=== PATIENT | female | born 1955 | race Caucasian/White ===

== ENCOUNTER 2016-05-07 | Outpatient (CLI) | END 2016-05-07 06:53 | disposition critical access hospital (66) | CPT/HCPCS: A0425; A0429 ==

== ENCOUNTER 2016-05-07 07:26 | Emergency (ER) | payer MEDICAID ==
[2016-05-07] MEDS ORDERED: SODIUM CHLORIDE 0.9% 1,000 ML IV ONE (08:12)
== END 2016-05-07 12:10 | disposition home or self-care (01) ==
DX: E86.0 Dehydration (principal); I10 Essential (primary) hypertension

== ENCOUNTER 2016-05-09 | Outpatient (CLI) | END 2016-05-09 12:26 | disposition EMS.NT ==

== ENCOUNTER 2016-05-15 | Outpatient (CLI) | payer MEDICAID | END 2016-05-15 16:01 | disposition EMS.NT ==

== ENCOUNTER 2016-05-22 | Outpatient (CLI) | payer MEDICAID | END 2016-05-22 14:17 | disposition critical access hospital (66) | CPT/HCPCS: A0425; A0429 ==

== ENCOUNTER 2016-05-22 14:51 | Emergency (ER) | payer MEDICAID ==
[2016-05-22] MEDS ORDERED: LORazepam 0.5 MG TABLET PO STA (15:01)
[2016-05-22] MEDS ORDERED: LORazepam 0.5 MG TABLET ONE (15:04)
[2016-05-22] MEDS ORDERED: CYCLOBENZAPRINE 10 MG TABLET PO STA (17:35)
[2016-05-22] MEDS ORDERED: CYCLOBENZAPRINE 10 MG TABLET PO ONE (17:36)
== END 2016-05-22 17:59 | disposition home or self-care (01) ==
DX: M62.838 Other muscle spasm (principal); S76.012A Strain of muscle, fascia and tendon of left hip, initial encounter; W01.0XXA Fall on same level from slipping, tripping and stumbling without subsequent striking against object, initial encounter; Z91.81 History of falling; I10 Essential (primary) hypertension
CPT/HCPCS: 36415; 80053; 81003; 83690; 85025; 99283; 99284; A9270

== ENCOUNTER 2016-05-31 | Outpatient (CLI) | payer MEDICAID | END 2016-05-31 21:02 | disposition critical access hospital (66) | CPT/HCPCS: A0425; A0429 ==

== ENCOUNTER 2016-05-31 21:35 | Emergency (ER) | payer MEDICAID ==
[2016-05-31] MEDS ORDERED: SODIUM CHLORIDE 0.9% 500 ML IV ONE (21:56)
[2016-05-31] MEDS ORDERED: NITROFURANTOIN MACRO 100 MG CAPSULE PO STA (22:46)
[2016-05-31] MEDS ORDERED: NITROFURANTOIN MACRO 100 MG CAPSULE PO ONE (22:48)
[2016-06-01] MEDS ORDERED: ACETAMINOPHEN 325 MG TABLET PO STA ×2 (02:48→08:35)
[2016-06-01] MEDS ORDERED: ACETAMINOPHEN 500 MG TABLET PO ONE (02:58)
[2016-06-01] MEDS ORDERED: ZINC OXIDE 20% OINT 28.35 GM TUBE TOP STA (03:03)
[2016-06-01] MEDS ORDERED: NITROFURANTOIN MACRO 100 MG CAPSULE PO STA (08:35)
[2016-06-01] MEDS ORDERED: ACETAMINOPHEN 325 MG TABLET PO ONE (08:38)
[2016-06-01] MEDS ORDERED: NITROFURANTOIN MACRO 100 MG CAPSULE PO ONE (08:38)
== END 2016-06-01 12:30 | disposition home or self-care (01) ==
DX: S70.11XA Contusion of right thigh, initial encounter (principal); W18.39XA Other fall on same level, initial encounter; Z91.81 History of falling; Y93.89 Activity, other specified; Y92.009 Unspecified place in unspecified non-institutional (private) residence as the place of occurrence of the external cause; Y99.8 Other external cause status; N39.0 Urinary tract infection, site not specified; E86.9 Volume depletion, unspecified; R53.1 Weakness; I10 Essential (primary) hypertension
CPT/HCPCS: 36415; 80053; 81001; 83690; 85025; 93005; 93010; 99284; A9270

== ENCOUNTER 2016-06-05 | Outpatient (CLI) | payer MEDICAID | END 2016-06-05 07:17 | disposition critical access hospital (66) | CPT/HCPCS: A0425; A0429 ==

== ENCOUNTER 2016-06-05 07:49 | Inpatient (IN) | payer MEDICAID ==
[2016-06-05] MEDS ORDERED: LORazepam 0.5 MG TABLET PO STA (08:41)
[2016-06-05] MEDS ORDERED: SODIUM CHLORIDE 0.9% 1,000 ML IV ONE ×2 (08:41→18:54)
[2016-06-05] MEDS ORDERED: LORazepam 0.5 MG TABLET ONE (09:07)
[2016-06-05] MEDS ORDERED: LORazepam 2 MG/ML SYRINGE IVP STA (09:58)
[2016-06-05] MEDS ORDERED: LORazepam 2 MG/ML SYRINGE ONE (10:00)
[2016-06-05] MEDS ORDERED: GADOBUTROL 7.5 MMOL/7.5 ML VIAL IVP ONE (10:52)
[2016-06-05] MEDS ORDERED: SODIUM CHLORIDE FLUSH 0.9% 10 ML SYRINGE IVP PRN (19:02)
[2016-06-05] MEDS ORDERED: ACETAMINOPHEN 325 MG TABLET PO PRN (19:02)
[2016-06-05] MEDS: BACLOFEN 10 MG TABLET PO PRN (21:57)
[2016-06-05] MEDS: OXYBUTYNIN 5MG TABLET PO SCH (21:57)
[2016-06-05] MEDS: SODIUM CHLORIDE 0.9% 1,000 ML IV SCH (23:50)
[2016-06-06] MEDS: SODIUM CHLORIDE FLUSH 0.9% 10 ML SYRINGE IVP SCH ×4 (02:50→20:41)
[2016-06-06] MEDS: cefTRIAXone 1 GM in SODIUM CHLORIDE 0.9% MINIBAG 100 ML IV SCH (05:39)
[2016-06-06] MEDS: SODIUM CHLORIDE 0.9% 1,000 ML IV SCH ×2 (08:40→11:18)
[2016-06-06] MEDS ORDERED: ZINC OXIDE 20% OINT 28.35 GM TUBE TOP ONE (09:35)
[2016-06-06] MEDS: ENOXAPARIN 40 MG/0.4 ML SYRINGE SUBQ SCH (09:40)
[2016-06-06] MEDS: POLYETHYLENE GLYCOL 3350 17 GM PACKET PO SCH (09:41)
[2016-06-06] MEDS: SACCHAROMYCES BOULARDII 250 MG CAPSULE PO SCH ×2 (09:41→17:14)
[2016-06-06] MEDS: OXYBUTYNIN 5MG TABLET PO SCH ×2 (09:41→20:38)
[2016-06-06] MEDS ORDERED: CYANOCOBALAMIN 1,000 MCG/ML VIAL IM ONE (11:15)
[2016-06-06] MEDS ORDERED: methylPREDNISolone SUCCINATE 1,000 MG in SODIUM CHLORIDE 0.9% 250 ML IV ONE (11:30)
[2016-06-06] MEDS ORDERED: diazePAM INJ 5 MG/ML SYRINGE IVP PRN (13:23)
[2016-06-06] MEDS ORDERED: HYDROmorphone 1 MG/ML SYRINGE IVP PRN (13:39)
[2016-06-06] MEDS: ONDANSETRON 4 MG/2 ML VIAL IVP PRN (14:37)
[2016-06-06] MEDS ORDERED: IOPAMIDOL-300 100 ML VIAL IVP ONE (15:36)
[2016-06-06] MEDS ORDERED: traMADol 50 MG TABLET PO PRN (18:47)
[2016-06-06] MEDS: diazePAM 5 MG TABLET PO SCH (20:38)
[2016-06-06] MEDS: CHOLECALCIFEROL 5,000 UNIT CAPSULE PO SCH (20:38)
[2016-06-06] MEDS: OMEGA-3 ACID ETHYL ESTERS 1 GM CAPSULE PO SCH (20:38)
[2016-06-06] MEDS: GABAPENTIN 300 MG CAPSULE PO SCH (20:38)
[2016-06-06] MEDS: BACLOFEN 10 MG TABLET PO PRN (22:45)
[2016-06-07] MEDS: TEMAZEPAM 15 MG CAPSULE PO PRN ×2 (00:23→23:33)
[2016-06-07] MEDS: SODIUM CHLORIDE 0.9% 1,000 ML IV SCH ×3 (00:59→22:54)
[2016-06-07] MEDS: cefTRIAXone 1 GM in SODIUM CHLORIDE 0.9% MINIBAG 100 ML IV SCH (04:32)
[2016-06-07] MEDS: SODIUM CHLORIDE FLUSH 0.9% 10 ML SYRINGE IVP SCH ×3 (05:57→21:36)
[2016-06-07] MEDS: POLYETHYLENE GLYCOL 3350 17 GM PACKET PO SCH (09:22)
[2016-06-07] MEDS: ENOXAPARIN 40 MG/0.4 ML SYRINGE SUBQ SCH (09:23)
[2016-06-07] MEDS: OXYBUTYNIN 5MG TABLET PO SCH ×2 (09:23→21:34)
[2016-06-07] MEDS: SACCHAROMYCES BOULARDII 250 MG CAPSULE PO SCH ×2 (09:23→17:01)
[2016-06-07] MEDS: OMEGA-3 ACID ETHYL ESTERS 1 GM CAPSULE PO SCH (09:23)
[2016-06-07] MEDS: CHOLECALCIFEROL 5,000 UNIT CAPSULE PO SCH ×2 (09:23→21:35)
[2016-06-07] MEDS ORDERED: methylPREDNISolone SUCCINATE 1,000 MG in SODIUM CHLORIDE 0.9% 250 ML IV SCH (12:00)
[2016-06-07] MEDS ORDERED: CIPROFLOXACIN 400 MG/200 ML 200 ML IV SCH (14:00)
[2016-06-07] MEDS: levoFLOXacin 250 MG TABLET PO SCH (17:00)
[2016-06-07] MEDS: ONDANSETRON 4 MG/2 ML VIAL IVP PRN (17:08)
[2016-06-07] MEDS: diazePAM 5 MG TABLET PO SCH (21:34)
[2016-06-07] MEDS: GABAPENTIN 300 MG CAPSULE PO SCH (21:35)
[2016-06-08] MEDS: ONDANSETRON 4 MG/2 ML VIAL IVP PRN (08:08)
[2016-06-08] MEDS ORDERED: GLUCAGON 1 MG/ML VIAL SUBQ PRN (08:30)
[2016-06-08] MEDS ORDERED: DEXTROSE GEL 37.5 GM TUBE PO PRN (08:30)
[2016-06-08] MEDS ORDERED: DEXTROSE 5% 1,000 ML IV PRN (08:30)
[2016-06-08] MEDS ORDERED: DEXTROSE 50% ABBOJECT 25 GM/50 ML SYRINGE IVP PRN (08:30)
[2016-06-08] MEDS: SODIUM CHLORIDE 0.9% 1,000 ML IV SCH (09:10)
[2016-06-08] MEDS ORDERED: MULTIVITAMIN 10 ML, FOLIC ACID INJ 1 MG, THIAMINE INJ 100 MG, MAGNESIUM SULFATE 2 GM in... IV SCH ×5 (09:30)
[2016-06-08] MEDS: OXYBUTYNIN 5MG TABLET PO SCH ×2 (09:37→21:19)
[2016-06-08] MEDS: levoFLOXacin 250 MG TABLET PO SCH (09:37)
[2016-06-08] MEDS: CHOLECALCIFEROL 5,000 UNIT CAPSULE PO SCH ×3 (09:37→21:20)
[2016-06-08] MEDS: POLYETHYLENE GLYCOL 3350 17 GM PACKET PO SCH (09:37)
[2016-06-08] MEDS: SACCHAROMYCES BOULARDII 250 MG CAPSULE PO SCH ×2 (09:38→16:37)
[2016-06-08] MEDS: ENOXAPARIN 40 MG/0.4 ML SYRINGE SUBQ SCH (09:38)
[2016-06-08] MEDS: OMEGA-3 ACID ETHYL ESTERS 1 GM CAPSULE PO SCH (09:38)
[2016-06-08] MEDS: SODIUM CHLORIDE FLUSH 0.9% 10 ML SYRINGE IVP SCH ×3 (10:42→23:59)
[2016-06-08] MEDS ORDERED: ALPRAZolam 0.25 MG TABLET PO ONE (11:10)
[2016-06-08] MEDS: INSULIN ASPART 300 UNIT/3 ML PEN SUBQ SCH ×3 (13:04→21:22)
[2016-06-08] MEDS ORDERED: ONDANSETRON ODT 4 MG TABLET TL PRN (14:43)
[2016-06-08] MEDS ORDERED: methylPREDNISolone SUCCINATE 1,000 MG in SODIUM CHLORIDE 0.9% 250 ML IV ONE (16:00)
[2016-06-08] MEDS: GABAPENTIN 300 MG CAPSULE PO SCH (21:19)
[2016-06-08] MEDS: diazePAM 5 MG TABLET PO SCH (21:19)
[2016-06-09] MEDS: TEMAZEPAM 15 MG CAPSULE PO PRN ×2 (01:01→23:59)
[2016-06-09] MEDS: SODIUM CHLORIDE FLUSH 0.9% 10 ML SYRINGE IVP SCH ×3 (05:25→21:00)
[2016-06-09] MEDS: ENOXAPARIN 40 MG/0.4 ML SYRINGE SUBQ SCH (07:56)
[2016-06-09] MEDS: INSULIN ASPART 300 UNIT/3 ML PEN SUBQ SCH ×4 (08:01→20:58)
[2016-06-09] MEDS: POLYETHYLENE GLYCOL 3350 17 GM PACKET PO SCH (08:02)
[2016-06-09] MEDS: OXYBUTYNIN 5MG TABLET PO SCH ×2 (08:02→20:51)
[2016-06-09] MEDS: OMEGA-3 ACID ETHYL ESTERS 1 GM CAPSULE PO SCH (08:02)
[2016-06-09] MEDS: SACCHAROMYCES BOULARDII 250 MG CAPSULE PO SCH ×2 (08:02→17:05)
[2016-06-09] MEDS: levoFLOXacin 250 MG TABLET PO SCH (08:02)
[2016-06-09] MEDS ORDERED: THIAMINE 100 MG/1 ML 2 ML MDV IM SCH (09:00)
[2016-06-09] MEDS ORDERED: diazePAM INJ 5 MG/ML SYRINGE IVP PRN (10:09)
[2016-06-09] MEDS ORDERED: LORazepam 2 MG/ML SYRINGE IVP PRN (10:10)
[2016-06-09] MEDS ORDERED: HYDROmorphone 1 MG/ML SYRINGE IVP PRN (10:11)
[2016-06-09] MEDS ORDERED: GABAPENTIN 100 MG CAPSULE PO PRN (11:00)
[2016-06-09] MEDS ORDERED: methylPREDNISolone SUCCINATE 500 MG in SODIUM CHLORIDE 0.9% 100ML 100 ML IV ONE (12:00)
[2016-06-09] MEDS ORDERED: GADOBUTROL 7.5 MMOL/7.5 ML VIAL IVP ONE (12:53)
[2016-06-09] MEDS: GABAPENTIN 300 MG CAPSULE PO SCH (20:51)
[2016-06-09] MEDS: CHOLECALCIFEROL 5,000 UNIT CAPSULE PO SCH (20:51)
[2016-06-09] MEDS: diazePAM 5 MG TABLET PO SCH (20:51)
[2016-06-10] MEDS: SODIUM CHLORIDE FLUSH 0.9% 10 ML SYRINGE IVP SCH ×3 (07:05→20:36)
[2016-06-10] MEDS: CHOLECALCIFEROL 5,000 UNIT CAPSULE PO SCH ×2 (08:27→20:36)
[2016-06-10] MEDS: OMEGA-3 ACID ETHYL ESTERS 1 GM CAPSULE PO SCH (08:27)
[2016-06-10] MEDS: ENOXAPARIN 40 MG/0.4 ML SYRINGE SUBQ SCH (08:27)
[2016-06-10] MEDS: SACCHAROMYCES BOULARDII 250 MG CAPSULE PO SCH ×2 (08:28→17:45)
[2016-06-10] MEDS: POLYETHYLENE GLYCOL 3350 17 GM PACKET PO SCH (08:28)
[2016-06-10] MEDS: OXYBUTYNIN 5MG TABLET PO SCH ×2 (08:28→20:36)
[2016-06-10] MEDS: INSULIN ASPART 300 UNIT/3 ML PEN SUBQ SCH ×4 (08:28→20:36)
[2016-06-10] MEDS: THIAMINE 100 MG/1 ML 2 ML MDV IM SCH (08:28)
[2016-06-10] MEDS ORDERED: GABAPENTIN 100 MG CAPSULE PO PRN (10:34)
[2016-06-10] MEDS ORDERED: diazePAM INJ 5 MG/ML SYRINGE IVP PRN (10:36)
[2016-06-10] MEDS ORDERED: LORazepam 2 MG/ML SYRINGE IVP PRN (10:37)
[2016-06-10] MEDS ORDERED: ZINC OXIDE 20% OINT 28.35 GM TUBE TOP ONE (15:06)
[2016-06-10] MEDS ORDERED: methylPREDNISolone SUCCINATE 125 MG/2 ML VIAL IVP SCH (18:00)
[2016-06-10] MEDS ORDERED: SODIUM CHLORIDE 0.9% IV ONE (18:30)
[2016-06-10] MEDS ORDERED: METHYLPREDNISOLONE SUCCINATE IV ONE (18:30)
[2016-06-10] MEDS: GABAPENTIN 300 MG CAPSULE PO SCH (20:36)
[2016-06-10] MEDS: diazePAM 5 MG TABLET PO SCH (20:36)
[2016-06-10] MEDS ORDERED: BENZOCAINE/MENTHOL LOZENGE MM PRN (22:13)
[2016-06-11] MEDS: TEMAZEPAM 15 MG CAPSULE PO PRN (00:04)
[2016-06-11] MEDS: SODIUM CHLORIDE FLUSH 0.9% 10 ML SYRINGE IVP SCH ×3 (06:49→20:54)
[2016-06-11] MEDS: SACCHAROMYCES BOULARDII 250 MG CAPSULE PO SCH ×2 (08:21→16:28)
[2016-06-11] MEDS: OXYBUTYNIN 5MG TABLET PO SCH ×2 (08:21→20:54)
[2016-06-11] MEDS: OMEGA-3 ACID ETHYL ESTERS 1 GM CAPSULE PO SCH (08:21)
[2016-06-11] MEDS: POLYETHYLENE GLYCOL 3350 17 GM PACKET PO SCH (08:21)
[2016-06-11] MEDS: ENOXAPARIN 40 MG/0.4 ML SYRINGE SUBQ SCH (08:21)
[2016-06-11] MEDS: CHOLECALCIFEROL 5,000 UNIT CAPSULE PO SCH ×2 (08:21→20:54)
[2016-06-11] MEDS: THIAMINE 100 MG/1 ML 2 ML MDV IM SCH (08:22)
[2016-06-11] MEDS: INSULIN ASPART 300 UNIT/3 ML PEN SUBQ SCH ×4 (08:22→20:53)
[2016-06-11] MEDS ORDERED: methylPREDNISolone SUCCINATE 500 MG in SODIUM CHLORIDE 0.9% 100ML 100 ML IV ONE ×2 (09:25→11:00)
[2016-06-11] MEDS: GABAPENTIN 300 MG CAPSULE PO SCH (20:54)
[2016-06-11] MEDS: diazePAM 5 MG TABLET PO SCH (23:48)
[2016-06-12] MEDS: INSULIN ASPART 300 UNIT/3 ML PEN SUBQ SCH ×4 (08:06→22:04)
[2016-06-12] MEDS: THIAMINE 100 MG TABLET PO SCH (09:06)
[2016-06-12] MEDS: SACCHAROMYCES BOULARDII 250 MG CAPSULE PO SCH ×2 (09:06→17:07)
[2016-06-12] MEDS: OMEGA-3 ACID ETHYL ESTERS 1 GM CAPSULE PO SCH (09:06)
[2016-06-12] MEDS: OXYBUTYNIN 5MG TABLET PO SCH ×2 (09:06→21:58)
[2016-06-12] MEDS: CHOLECALCIFEROL 5,000 UNIT CAPSULE PO SCH ×2 (09:06→21:58)
[2016-06-12] MEDS: POLYETHYLENE GLYCOL 3350 17 GM PACKET PO SCH (09:07)
[2016-06-12] MEDS: ENOXAPARIN 40 MG/0.4 ML SYRINGE SUBQ SCH (09:08)
[2016-06-12] MEDS: SODIUM CHLORIDE FLUSH 0.9% 10 ML SYRINGE IVP SCH ×3 (09:12→21:58)
[2016-06-12] MEDS ORDERED: ZINC OXIDE 20% OINT 28.35 GM TUBE TOP ONE (15:07)
[2016-06-12] MEDS: predniSONE 20 MG TABLET PO SCH ×2 (15:32→21:58)
[2016-06-12] MEDS: GABAPENTIN 300 MG CAPSULE PO SCH (21:58)
[2016-06-12] MEDS: diazePAM 5 MG TABLET PO SCH (23:39)
[2016-06-13] MEDS: TEMAZEPAM 15 MG CAPSULE PO PRN (01:23)
[2016-06-13] MEDS: SODIUM CHLORIDE FLUSH 0.9% 10 ML SYRINGE IVP SCH (06:34)
[2016-06-13] MEDS: INSULIN ASPART 300 UNIT/3 ML PEN SUBQ SCH ×2 (07:40→12:43)
[2016-06-13] MEDS: SACCHAROMYCES BOULARDII 250 MG CAPSULE PO SCH (08:25)
[2016-06-13] MEDS: CHOLECALCIFEROL 5,000 UNIT CAPSULE PO SCH (08:25)
[2016-06-13] MEDS: OMEGA-3 ACID ETHYL ESTERS 1 GM CAPSULE PO SCH (08:25)
[2016-06-13] MEDS: ENOXAPARIN 40 MG/0.4 ML SYRINGE SUBQ SCH (08:26)
[2016-06-13] MEDS: POLYETHYLENE GLYCOL 3350 17 GM PACKET PO SCH (08:26)
[2016-06-13] MEDS: OXYBUTYNIN 5MG TABLET PO SCH (08:26)
[2016-06-13] MEDS: THIAMINE 100 MG TABLET PO SCH (08:26)
[2016-06-13] MEDS: predniSONE 20 MG TABLET PO SCH (08:26)
== END 2016-06-13 14:25 | DRG 546 ==
DX: M32.9 Systemic lupus erythematosus, unspecified (principal); N30.01 Acute cystitis with hematuria; E87.1 Hypo-osmolality and hyponatremia; R27.0 Ataxia, unspecified; R76.0 Raised antibody titer; B95.61 Methicillin susceptible Staphylococcus aureus infection as the cause of diseases classified elsewhere; G35 Multiple sclerosis; Z16.11 Resistance to penicillins; Z85.3 Personal history of malignant neoplasm of breast; Z79.52 Long term (current) use of systemic steroids; Z88.5 Allergy status to narcotic agent; R31.29 Other microscopic hematuria; R90.89 Other abnormal findings on diagnostic imaging of central nervous system; I95.9 Hypotension, unspecified; R29.6 Repeated falls; Z90.13 Acquired absence of bilateral breasts and nipples; R25.9 Unspecified abnormal involuntary movements; Z82.49 Family history of ischemic heart disease and other diseases of the circulatory system; Z82.3 Family history of stroke; Z83.79 Family history of other diseases of the digestive system; I10 Essential (primary) hypertension; E86.0 Dehydration; S30.0XXA Contusion of lower back and pelvis, initial encounter; W19.XXXA Unspecified fall, initial encounter; R60.0 Localized edema; R73.9 Hyperglycemia, unspecified; T38.0X5A Adverse effect of glucocorticoids and synthetic analogues, initial encounter

== ENCOUNTER 2016-07-17 11:47 | Outpatient (CLI) | payer MEDICAID | END 2016-07-17 11:48 | disposition home or self-care (01) | DX: R94.4 Abnormal results of kidney function studies (principal); E83.51 Hypocalcemia ==

== ENCOUNTER 2016-08-14 18:30 | Outpatient (CLI) | payer MEDICAID | END 2016-08-14 18:31 | disposition EMS.NT | DX: T17.928A Food in respiratory tract, part unspecified causing other injury, initial encounter (principal) ==

== ENCOUNTER 2016-08-16 06:05 | Outpatient (CLI) | payer MEDICAID | END 2016-08-16 06:06 | disposition critical access hospital (66) | DX: R55 Syncope and collapse (principal) | CPT/HCPCS: A0425; A0429 ==

== ENCOUNTER 2016-08-16 06:33 | Inpatient (IN) | payer MEDICAID ==
[2016-08-16] MEDS ORDERED: SODIUM CHLORIDE 0.9% 1,000 ML IV ONE (06:45)
[2016-08-16] MEDS ORDERED: DEXTROSE 50% ABBOJECT 25 GM/50 ML SYRINGE ONE (07:29)
[2016-08-16] MEDS ORDERED: DEXTROSE 50% ABBOJECT 25 GM/50 ML SYRINGE IVP STA (07:30)
[2016-08-16] MEDS ORDERED: IOPAMIDOL-300 100 ML VIAL IVP ONE (07:39)
[2016-08-16] MEDS ORDERED: HYDROCORTISONE SUCCINATE 100 MG/2 ML VIAL IVP STA (07:49)
[2016-08-16] MEDS ORDERED: HYDROCORTISONE SUCCINATE 100 MG/2 ML VIAL IVP ONE (07:52)
[2016-08-16] MEDS ORDERED: WATER FOR INJECTION,STERILE 10 ML ONE (07:54)
[2016-08-16] MEDS ORDERED: PIPERACILLIN/TAZOBACTAM 4.5 GM in SODIUM CHLORIDE 0.9% MINIBAG 100 ML IV STA (08:18)
[2016-08-16] MEDS ORDERED: ENOXAPARIN 100 MG/ML SYRINGE SUBQ STA (08:23)
[2016-08-16] MEDS ORDERED: ENOXAPARIN 100 MG/ML SYRINGE SUBQ ONE (08:43)
[2016-08-16] MEDS ORDERED: ALBUTEROL NEB 2.5 MG/3 ML INH PRN (09:35)
[2016-08-16] MEDS ORDERED: IPRATROPIUM/ALBUTEROL 3 ML NEB INH PRN (09:35)
[2016-08-16] MEDS: SODIUM CHLORIDE 0.9% 1,000 ML IV SCH ×2 (10:40→23:00)
[2016-08-16] MEDS: methylPREDNISolone SUCCINATE 40 MG/ML VIAL IVP SCH ×2 (11:09→21:11)
[2016-08-16] MEDS: ENOXAPARIN 60 MG/0.6 ML SYRINGE SUBQ SCH ×2 (11:11→21:55)
[2016-08-16] MEDS: ONDANSETRON 4 MG/2 ML VIAL IVP PRN (11:12)
[2016-08-16] MEDS: OXYBUTYNIN 5MG TABLET PO SCH ×2 (11:12→21:57)
[2016-08-16] MEDS: POTASSIUM CHLORIDE 20 MEQ TABLET PO SCH ×2 (11:14→14:11)
[2016-08-16] MEDS: PIPERACILLIN/TAZOBACTAM 4.5 GM in SODIUM CHLORIDE 0.9% MINIBAG 100 ML IV SCH ×2 (11:15→20:47)
[2016-08-16] MEDS ORDERED: WARFARIN 5 MG TABLET PO ONE (11:30)
[2016-08-16] MEDS: SODIUM CHLORIDE FLUSH 0.9% 10 ML SYRINGE IVP SCH (14:11)
[2016-08-16] MEDS: HYDROcod/ACETAM 5/325 MG TABLET PO PRN ×2 (14:17→21:07)
[2016-08-16] MEDS: MIN OIL/DIMETHICON/COCONUT OIL 92 GM TUBE TOP PRN (17:57)
[2016-08-16] MEDS: BACLOFEN 10 MG TABLET PO SCH ×2 (17:57→21:56)
[2016-08-16] MEDS: SACCHAROMYCES BOULARDII 250 MG CAPSULE PO SCH (17:57)
[2016-08-16] MEDS: traMADol 50 MG TABLET PO PRN (19:40)
[2016-08-16] MEDS: GABAPENTIN 300 MG CAPSULE PO SCH (21:08)
[2016-08-16] MEDS: TEMAZEPAM 15 MG CAPSULE PO SCH (21:36)
[2016-08-16] MEDS: LORazepam 0.5 MG TABLET PO PRN (22:57)
[2016-08-17] MEDS: SODIUM CHLORIDE FLUSH 0.9% 10 ML SYRINGE IVP SCH ×4 (01:01→20:51)
[2016-08-17] MEDS: PIPERACILLIN/TAZOBACTAM 4.5 GM in SODIUM CHLORIDE 0.9% MINIBAG 100 ML IV SCH ×3 (04:08→20:49)
[2016-08-17] MEDS: BACLOFEN 10 MG TABLET PO SCH ×3 (05:42→20:50)
[2016-08-17] MEDS: HYDROcod/ACETAM 5/325 MG TABLET PO PRN ×2 (05:43→06:41)
[2016-08-17] MEDS: SACCHAROMYCES BOULARDII 250 MG CAPSULE PO SCH ×2 (08:06→16:02)
[2016-08-17] MEDS: methylPREDNISolone SUCCINATE 40 MG/ML VIAL IVP SCH ×2 (08:06→20:50)
[2016-08-17] MEDS: ENOXAPARIN 60 MG/0.6 ML SYRINGE SUBQ SCH ×2 (08:06→20:49)
[2016-08-17] MEDS: OXYBUTYNIN 5MG TABLET PO SCH ×2 (08:06→20:50)
[2016-08-17] MEDS: MIN OIL/DIMETHICON/COCONUT OIL 92 GM TUBE TOP PRN (08:07)
[2016-08-17] MEDS ORDERED: GABAPENTIN 300 MG CAPSULE PO SCH (09:00)
[2016-08-17] MEDS: ONDANSETRON 4 MG/2 ML VIAL IVP PRN (13:17)
[2016-08-17] MEDS: WARFARIN 5 MG TABLET PO SCH (13:19)
[2016-08-17] MEDS: GABAPENTIN 300 MG CAPSULE PO SCH (20:50)
[2016-08-17] MEDS: TEMAZEPAM 15 MG CAPSULE PO SCH (22:22)
[2016-08-17] MEDS: ACETAMINOPHEN 325 MG TABLET PO PRN (23:33)
[2016-08-18] MEDS: PIPERACILLIN/TAZOBACTAM 4.5 GM in SODIUM CHLORIDE 0.9% MINIBAG 100 ML IV SCH ×3 (03:40→20:15)
[2016-08-18] MEDS: SODIUM CHLORIDE FLUSH 0.9% 10 ML SYRINGE IVP PRN ×2 (03:41→17:51)
[2016-08-18] MEDS: SODIUM CHLORIDE FLUSH 0.9% 10 ML SYRINGE IVP SCH ×3 (05:04→20:16)
[2016-08-18] MEDS: BACLOFEN 10 MG TABLET PO SCH ×3 (05:58→21:40)
[2016-08-18] MEDS: SACCHAROMYCES BOULARDII 250 MG CAPSULE PO SCH ×2 (09:14→17:48)
[2016-08-18] MEDS: OXYBUTYNIN 5MG TABLET PO SCH ×2 (09:14→20:22)
[2016-08-18] MEDS: ENOXAPARIN 60 MG/0.6 ML SYRINGE SUBQ SCH ×2 (09:14→21:40)
[2016-08-18] MEDS: methylPREDNISolone SUCCINATE 40 MG/ML VIAL IVP SCH ×2 (09:14→20:20)
[2016-08-18] MEDS: WARFARIN 5 MG TABLET PO SCH (16:12)
[2016-08-18] MEDS: TEMAZEPAM 15 MG CAPSULE PO SCH (20:22)
[2016-08-18] MEDS: GABAPENTIN 300 MG CAPSULE PO SCH (20:23)
[2016-08-18] MEDS: LORazepam 0.5 MG TABLET PO PRN (21:45)
[2016-08-19] MEDS: PIPERACILLIN/TAZOBACTAM 4.5 GM in SODIUM CHLORIDE 0.9% MINIBAG 100 ML IV SCH ×3 (04:42→20:35)
[2016-08-19] MEDS: SACCHAROMYCES BOULARDII 250 MG CAPSULE PO SCH ×2 (07:05→16:29)
[2016-08-19] MEDS: BACLOFEN 10 MG TABLET PO SCH ×3 (07:05→21:02)
[2016-08-19] MEDS: SODIUM CHLORIDE FLUSH 0.9% 10 ML SYRINGE IVP SCH ×3 (07:05→20:36)
[2016-08-19] MEDS: OXYBUTYNIN 5MG TABLET PO SCH ×2 (08:55→20:44)
[2016-08-19] MEDS: ENOXAPARIN 60 MG/0.6 ML SYRINGE SUBQ SCH ×2 (08:55→20:58)
[2016-08-19] MEDS: methylPREDNISolone SUCCINATE 40 MG/ML VIAL IVP SCH ×2 (08:56→20:45)
[2016-08-19] MEDS: WARFARIN 5 MG TABLET PO SCH (14:02)
[2016-08-19] MEDS ORDERED: BISACODYL 10 MG SUPP PR ONE (18:07)
[2016-08-19] MEDS: GABAPENTIN 300 MG CAPSULE PO SCH (20:44)
[2016-08-19] MEDS: ACETAMINOPHEN 325 MG TABLET PO PRN (21:01)
[2016-08-19] MEDS: TEMAZEPAM 15 MG CAPSULE PO SCH (21:02)
[2016-08-20] MEDS: SODIUM CHLORIDE FLUSH 0.9% 10 ML SYRINGE IVP PRN (00:43)
[2016-08-20] MEDS: PIPERACILLIN/TAZOBACTAM 4.5 GM in SODIUM CHLORIDE 0.9% MINIBAG 100 ML IV SCH ×3 (03:47→21:08)
[2016-08-20] MEDS: BACLOFEN 10 MG TABLET PO SCH ×3 (06:11→21:09)
[2016-08-20] MEDS: SODIUM CHLORIDE FLUSH 0.9% 10 ML SYRINGE IVP SCH ×3 (06:12→21:08)
[2016-08-20] MEDS ORDERED: diazePAM 5 MG TABLET PO PRN (07:58)
[2016-08-20] MEDS: ENOXAPARIN 60 MG/0.6 ML SYRINGE SUBQ SCH (09:28)
[2016-08-20] MEDS: OXYBUTYNIN 5MG TABLET PO SCH ×2 (09:28→21:09)
[2016-08-20] MEDS: methylPREDNISolone SUCCINATE 40 MG/ML VIAL IVP SCH (09:28)
[2016-08-20] MEDS: SACCHAROMYCES BOULARDII 250 MG CAPSULE PO SCH ×4 (09:28→18:41)
[2016-08-20] MEDS: WARFARIN 5 MG TABLET PO SCH (14:04)
[2016-08-20] MEDS: GABAPENTIN 300 MG CAPSULE PO SCH (21:09)
[2016-08-20] MEDS: TEMAZEPAM 15 MG CAPSULE PO SCH (22:27)
[2016-08-21] MEDS: traMADol 50 MG TABLET PO PRN (01:38)
[2016-08-21] MEDS: PIPERACILLIN/TAZOBACTAM 4.5 GM in SODIUM CHLORIDE 0.9% MINIBAG 100 ML IV SCH ×3 (04:11→20:38)
[2016-08-21] MEDS: SODIUM CHLORIDE FLUSH 0.9% 10 ML SYRINGE IVP SCH ×3 (04:11→20:38)
[2016-08-21] MEDS: BACLOFEN 10 MG TABLET PO SCH ×3 (07:27→22:24)
[2016-08-21] MEDS: predniSONE 20 MG TABLET PO SCH (08:20)
[2016-08-21] MEDS: OXYBUTYNIN 5MG TABLET PO SCH ×2 (08:20→22:24)
[2016-08-21] MEDS: SACCHAROMYCES BOULARDII 250 MG CAPSULE PO SCH ×2 (08:21→16:29)
[2016-08-21] MEDS: WARFARIN 5 MG TABLET PO SCH (13:26)
[2016-08-21] MEDS: MICONAZOLE CREAM (EXTRA-THICK) 92 GM TUBE TOP SCH ×2 (13:37→22:25)
[2016-08-21] MEDS: TEMAZEPAM 15 MG CAPSULE PO SCH (22:24)
[2016-08-21] MEDS: GABAPENTIN 300 MG CAPSULE PO SCH (22:24)
[2016-08-22] MEDS: SODIUM CHLORIDE FLUSH 0.9% 10 ML SYRINGE IVP PRN ×2 (00:41→04:35)
[2016-08-22] MEDS: PIPERACILLIN/TAZOBACTAM 4.5 GM in SODIUM CHLORIDE 0.9% MINIBAG 100 ML IV SCH ×2 (04:34→11:53)
[2016-08-22] MEDS: BACLOFEN 10 MG TABLET PO SCH ×2 (06:40→13:14)
[2016-08-22] MEDS: LORazepam 0.5 MG TABLET PO PRN (07:07)
[2016-08-22] MEDS: OXYBUTYNIN 5MG TABLET PO SCH ×2 (08:23→21:05)
[2016-08-22] MEDS: traMADol 50 MG TABLET PO PRN (08:23)
[2016-08-22] MEDS: predniSONE 20 MG TABLET PO SCH (08:23)
[2016-08-22] MEDS: SACCHAROMYCES BOULARDII 250 MG CAPSULE PO SCH ×2 (08:23→21:05)
[2016-08-22] MEDS: MICONAZOLE CREAM (EXTRA-THICK) 92 GM TUBE TOP SCH ×2 (08:28→21:06)
[2016-08-22] MEDS: SODIUM CHLORIDE FLUSH 0.9% 10 ML SYRINGE IVP SCH ×3 (08:44→21:06)
[2016-08-22] MEDS: WARFARIN 5 MG TABLET PO SCH (13:14)
[2016-08-23] MEDS: LORazepam 0.5 MG TABLET PO PRN (01:08)
[2016-08-23] MEDS: SODIUM CHLORIDE FLUSH 0.9% 10 ML SYRINGE IVP SCH (05:41)
[2016-08-23] MEDS: SACCHAROMYCES BOULARDII 250 MG CAPSULE PO SCH (08:35)
[2016-08-23] MEDS: OXYBUTYNIN 5MG TABLET PO SCH (08:35)
[2016-08-23] MEDS: predniSONE 20 MG TABLET PO SCH (08:36)
[2016-08-23] MEDS: MICONAZOLE CREAM (EXTRA-THICK) 92 GM TUBE TOP SCH (08:36)
[2016-08-23] MEDS ORDERED: LORazepam 2 MG/ML SYRINGE IVP STA (15:24)
[2016-08-23] MEDS ORDERED: LORazepam 0.5 MG TABLET PO STA (16:26)
== END 2016-08-23 09:00 | DRG 175 ==
DX: I26.99 Other pulmonary embolism without acute cor pulmonale (principal); J18.9 Pneumonia, unspecified organism; G37.9 Demyelinating disease of central nervous system, unspecified; E27.40 Unspecified adrenocortical insufficiency; E24.2 Drug-induced Cushing's syndrome; E87.6 Hypokalemia; J01.90 Acute sinusitis, unspecified; R55 Syncope and collapse; R53.1 Weakness; D64.9 Anemia, unspecified; R41.0 Disorientation, unspecified; K76.0 Fatty (change of) liver, not elsewhere classified; I10 Essential (primary) hypertension; G62.9 Polyneuropathy, unspecified; F40.240 Claustrophobia; R59.0 Localized enlarged lymph nodes; E27.9 Disorder of adrenal gland, unspecified; Z85.3 Personal history of malignant neoplasm of breast; Z90.13 Acquired absence of bilateral breasts and nipples; Z79.899 Other long term (current) drug therapy; F09 Unspecified mental disorder due to known physiological condition; R40.4 Transient alteration of awareness; J01.00 Acute maxillary sinusitis, unspecified; J01.30 Acute sphenoidal sinusitis, unspecified; T38.0X5A Adverse effect of glucocorticoids and synthetic analogues, initial encounter; L89.309 Pressure ulcer of unspecified buttock, unspecified stage; Z79.01 Long term (current) use of anticoagulants; Z79.52 Long term (current) use of systemic steroids

== ENCOUNTER 2016-08-23 14:27 | Inpatient (IN) | payer MEDICAID ==
[~2016-08-23 14:27] MED LIST: ONDANSETRON 4 MG/2 ML VIAL IVP PRN; OXYBUTYNIN 5MG TABLET PO PRN; SODIUM CHLORIDE FLUSH 0.9% 10 ML SYRINGE IVP PRN
[2016-08-23] MEDS ORDERED: LORazepam 2 MG/ML SYRINGE IVP ONE (16:00)
[2016-08-23] MEDS ORDERED: LORazepam 0.5 MG TABLET PO ONE (16:45)
[2016-08-23] MEDS: WARFARIN 5 MG TABLET PO SCH (18:33)
[2016-08-23] MEDS: SODIUM CHLORIDE 0.9% 1,000 ML IV SCH (18:34)
[2016-08-23] MEDS: SODIUM CHLORIDE FLUSH 0.9% 10 ML SYRINGE IVP SCH (20:39)
[2016-08-23] MEDS: GABAPENTIN 300 MG CAPSULE PO SCH (20:39)
[2016-08-23] MEDS ORDERED: ATORVASTATIN 40 MG TABLET PO SCH (21:00)
[2016-08-23] MEDS: NYSTATIN POWDER 15 GM TOP SCH (21:41)
[2016-08-24] MEDS: SODIUM CHLORIDE 0.9% 1,000 ML IV SCH (03:59)
[2016-08-24] MEDS: SODIUM CHLORIDE FLUSH 0.9% 10 ML SYRINGE IVP SCH ×3 (04:03→20:51)
[2016-08-24] MEDS ORDERED: PANTOPRAZOLE 40 MG TABLET PO SCH (07:00)
[2016-08-24] MEDS: WARFARIN 5 MG TABLET PO SCH (07:08)
[2016-08-24] MEDS ORDERED: predniSONE 10 MG TABLET PO SCH (08:00)
[2016-08-24] MEDS ORDERED: MULTIVITAMIN TABLET PO SCH (08:00)
[2016-08-24] MEDS: ATENOLOL 25 MG TABLET PO SCH (11:10)
[2016-08-24] MEDS: POLYETHYLENE GLYCOL 3350 17 GM PACKET PO SCH (11:10)
[2016-08-24] MEDS: ASPIRIN EC 81 MG TABLET PO SCH (11:10)
[2016-08-24] MEDS: NYSTATIN POWDER 15 GM TOP SCH ×2 (11:10→20:50)
[2016-08-24] MEDS ORDERED: CHOLECALCIFEROL 5,000 UNIT CAPSULE PO SCH ×2 (12:00→18:05)
[2016-08-24] MEDS: ASCORBIC ACID CHEW 500 MG TABLET PO SCH (12:20)
[2016-08-24] MEDS: OMEGA-3 ACID ETHYL ESTERS 1 GM CAPSULE PO SCH (12:20)
[2016-08-24] MEDS ORDERED: [UNRECOGNIZED DRUG - OTHER] IV SCH ×6 (12:30)
[2016-08-24] MEDS ORDERED: THIAMINE IV SCH ×6 (12:30)
[2016-08-24] MEDS ORDERED: FOLIC ACID IV SCH ×6 (12:30)
[2016-08-24] MEDS ORDERED: MULTIVITAMIN IV SCH ×6 (12:30)
[2016-08-24] MEDS ORDERED: MAGNESIUM SULFATE IV SCH ×6 (12:30)
[2016-08-24] MEDS ORDERED: IRON SUCROSE 200 MG in SODIUM CHLORIDE 0.9% 100ML 100 ML IV SCH (17:40)
[2016-08-24] MEDS ORDERED: CYANOCOBALAMIN 1,000 MCG/ML VIAL IM SCH (18:34)
[2016-08-24] MEDS: oxyCODONE 5 MG TABLET PO PRN (18:53)
[2016-08-24] MEDS: ALPRAZolam 0.25 MG TABLET PO PRN (18:53)
[2016-08-24] MEDS: SACCHAROMYCES BOULARDII 250 MG CAPSULE PO SCH (18:55)
[2016-08-24] MEDS: GABAPENTIN 300 MG CAPSULE PO SCH (20:49)
[2016-08-25] MEDS: ACETAMINOPHEN 325 MG TABLET PO PRN ×2 (00:17→10:31)
[2016-08-25] MEDS: NYSTATIN 500000 UNITS/5 ML UDC PO SCH ×5 (00:17→21:29)
[2016-08-25] MEDS: SODIUM CHLORIDE 0.9% 1,000 ML IV SCH ×4 (03:12→21:29)
[2016-08-25] MEDS: ALPRAZolam 0.25 MG TABLET PO PRN ×2 (03:33→19:27)
[2016-08-25] MEDS: oxyCODONE 5 MG TABLET PO PRN (03:33)
[2016-08-25] MEDS: SODIUM CHLORIDE FLUSH 0.9% 10 ML SYRINGE IVP SCH ×3 (05:26→21:29)
[2016-08-25] MEDS ORDERED: MULTIVITAMIN IV SCH ×7 (10:00)
[2016-08-25] MEDS ORDERED: THIAMINE IV SCH ×7 (10:00)
[2016-08-25] MEDS ORDERED: MAGNESIUM SULFATE IV SCH ×7 (10:00)
[2016-08-25] MEDS ORDERED: [UNRECOGNIZED DRUG - OTHER] IV SCH ×7 (10:00)
[2016-08-25] MEDS ORDERED: FOLIC ACID IV SCH ×7 (10:00)
[2016-08-25] MEDS ORDERED: CYANOCOBALAMIN 1,000 MCG/ML VIAL IM ONE (10:24)
[2016-08-25] MEDS: ASPIRIN EC 81 MG TABLET PO SCH (10:31)
[2016-08-25] MEDS: SACCHAROMYCES BOULARDII 250 MG CAPSULE PO SCH ×2 (10:31→17:03)
[2016-08-25] MEDS: ASCORBIC ACID CHEW 500 MG TABLET PO SCH (10:31)
[2016-08-25] MEDS: POLYETHYLENE GLYCOL 3350 17 GM PACKET PO SCH (10:32)
[2016-08-25] MEDS: ATENOLOL 25 MG TABLET PO SCH (10:36)
[2016-08-25] MEDS: OMEGA-3 ACID ETHYL ESTERS 1 GM CAPSULE PO SCH (10:37)
[2016-08-25] MEDS: NYSTATIN POWDER 15 GM TOP SCH ×2 (12:55→21:30)
[2016-08-25] MEDS ORDERED: WARFARIN 2.5 MG TABLET PO SCH (14:00)
[2016-08-25] MEDS ORDERED: TRACE ELEMENTS V CONC 1 ML VIAL IV SCH (19:00)
[2016-08-25] MEDS: GABAPENTIN 300 MG CAPSULE PO SCH (21:29)
== END 2016-08-26 00:39 | disposition short-term general hospital (02) | DRG 884 ==
DX: F09 Unspecified mental disorder due to known physiological condition (principal); I26.99 Other pulmonary embolism without acute cor pulmonale; G37.9 Demyelinating disease of central nervous system, unspecified; E27.40 Unspecified adrenocortical insufficiency; E24.2 Drug-induced Cushing's syndrome; R40.4 Transient alteration of awareness; M35.9 Systemic involvement of connective tissue, unspecified; G62.9 Polyneuropathy, unspecified; J01.00 Acute maxillary sinusitis, unspecified; J01.30 Acute sphenoidal sinusitis, unspecified; T38.0X5A Adverse effect of glucocorticoids and synthetic analogues, initial encounter; I10 Essential (primary) hypertension; L89.309 Pressure ulcer of unspecified buttock, unspecified stage; Z79.01 Long term (current) use of anticoagulants; Z85.3 Personal history of malignant neoplasm of breast; Z90.13 Acquired absence of bilateral breasts and nipples; Z79.52 Long term (current) use of systemic steroids; Z79.899 Other long term (current) drug therapy